=== PATIENT | male | born 1965 | race Caucasian/White ===

== ENCOUNTER 2025-08-13 09:30 | Inpatient (IN) | payer BC, SELFPAY ==
[2025-08-13] VITALS (26 sets, daily range): BP systolic 130–166; BP diastolic 87–107; BMI 26.2
--- NOTE | 2025-08-13 08:27 | HPS.HSE ---
Addendum entered and electronically signed by Stanford Granger MD 08/13/25 10:25:
Patient seen and examined in collaboration with MINUTE CLERK; agree with below.
- 59-year-old male with hypertension who presented for an elective stress test for evaluation of chest pain; patient has been having progressive anginal symptoms, now unstable over the past couple of weeks. Experienced midsternal chest pain and
nausea last evening.
- During the stress test the patient had exercise induced chest pain and significant EKG abnormalities (2.[address] depression in the inferolateral leads and 1-[address] elevation in lead aVR).
- The patient had persistence of chest pain post-exercise, although ST-T segments improved a few minutes into recovery.
- Patient referred to ER to be admitted to the Cardiology service and undergo cardiac catheterization today.
- Full dose aspirin, heparin drip, start beta-refugio.
- front desk monitor.
- N.p.o. for procedure.
Original Note:
Family Physician
-
Family Physician:
Estrellita Camara MD
Chief Complaint
-
chest discomfort
History of Present Illness
59 y/o with hypertension, preDM, remote paroxysmal AFIB in his 20's in setting of dehydration per patient- no known recurrence, and dyslipidemia who started noting chest tightness with exertion over the past 1-2 months. Sometimes noted at rest as
well. Last night it happened at rest and was associated with nausea. He presented today for a stress test. He developed CP and EKG changes, as well as brief NSVT. He was sent to the ER and plan is for cath for further evaluation.
Medical History
Past Medical History
Past Medical History: Reports Arrhythmia, HTN, Hypercholesterolemia and Other (pre DM)
Past Surgical History: Reports Other (hernia and hydrocelectomy)
Social History
Tobacco: Non-smoker
Alcohol: None
Drug: None
Personal:
Living: With Family
Family History
Family History: Other (GM at age 64. Had flu, may have had cardiac issues- unclear)
Allergies / Home Medications
Allergies reflects when Allergies were last updated in [facility].
Home Medications with original date entered in [facility]
Allergy/Medication List:
Allergies:
NKDA
Medications:
lisinopril 20 mg PO daily
Review of Systems
-
History Source: Patient
A 12 point ROS was completed and negative except as noted: Yes
Cardiac: Reports Chest Pain
Abdomen/GI: Reports Nausea
Physical Exam
Vital Signs
Vital Signs
Temp Pulse Resp BP Pulse Ox
98.5 F 94 18 166/107 98
08/13/25 08:08 08/13/25 08:08 08/13/25 08:08 08/13/25 08:08 08/13/25 08:08
Physical Exam
General: Well Developed, Well Nourished and No Apparent Distress
HEENT: NormoCephalic and Anicteric
Respiratory: Clear and Non Labored Respirations
Cardiac: Regular Rhythm
Skin: Warm and Dry
Neuro: AO x 3
Psych: Calm
Laboratory Results
-
Labs ordered and pending- OP LDL and HGBA1C as noted
Data Reviewed
-
Diagnostic Radiology: Image Personally Visualized and interpreted (EKG: NSR 96 BPM)
Medical Tests (Nuc Med, Echo, EKG etc): Other (echo ordered )
Lab Data: Other (labs ordered and pending)
Impression/Plan
-
IMPRESSION/PLAN:
Unstable angina:
-currently CP free
-this diagnosis is threat to life
-trend trops and EKG's
-ASA, statin, BB
-start heparin drip, which requires intensive monitoring
-cardiac cath today- cath team made aware by Dr. Granger. Will keep NPO.
Hypertension:
-elevated in ER and on stress test
-resume lisinopril
-add BB and monitor
PreDM:
-recent OP hgbA1C- 6.2 (07/29/25)
-should be educated on diet and exercise prior to d/c, and follow-up with PCP on this
HLD:
-LDL 105 (07/29/25)
-start statin for [place] as above
Remote PAF in his 20's:
-in setting of dehydration, no known recurrence. Follow telemetry.
--- NOTE | 2025-08-13 08:42 | ED.GENMED ---
History of Present Illness
General
Chief Complaint: Chest Pain
Time Seen by Provider: 08/13/25 08:42
History of Present Illness
History of Present Illness:
FOCUSED PAST MEDICAL HISTORY
- High blood pressure, was recently told he has high cholesterol
REVIEW OF OLD RECORDS
- I reviewed the: Note from Dr. Granger indicating that the patient 'had abnormal stress test, [address] depression inferolateral leads and [address] elevation in aVR, still with mild residual chest pain, but ST segments are normalizing, admit to
cardiology, cardiac cath today'
Note:
CHIEF COMPLAINT(S)
Chest tightness with exertion.
HISTORY OF PRESENT ILLNESS
The patient is a 59-year-old male who presented with symptoms of chest tightness occurring during exertion, specifically when walking for approximately 10 minutes or more. This symptom began about a month ago and was reported to his general
practitioner arrange for cardiac evaluation which led to stress testing this morning. The patient reports experiencing the chest tightness primarily during a treadmill stress test, which was subsequently found to be abnormal. He has a known history
of hypertension and was undergoing evaluation with plans for a heart catheterization.
PAST MEDICAL AND SURIGICAL HISTORY
- History of hypertension.
CHRONIC MEDICAL CONDITIONS SIGNIFICANTLY AFFECTING CARE
- Hypertension.
REVIEW OF SYSTEMS
- Cardiovascular: Reports chest tightness with exertion, particularly when walking for 10 minutes or during a stress test.
PHYSICAL EXAM
- General: Alert, no acute distress. Appears comfortable
- Skin: Warm, dry.
- Head: Normocephalic, atraumatic.
- Neck: Supple, trachea midline.
- Eye Ears, nose, mouth and throat: Oral mucosa moist.
- Cardiovascular: Normal peripheral perfusion, No edema.
- Respiratory: Respirations are non-labored.
- Gastrointestinal: Abdomen nondistended.
- Back: Normal range of motion, Normal alignment.
- Musculoskeletal: Normal ROM, normal strength.
- Neurological: Alert and oriented to person, place, time, and situation, No focal neurological deficit observed.
- Psychiatric: Cooperative, appropriate mood & affect.
PROBLEM LIST
- Acute: Chest tightness with exertion.
- Chronic: Hypertension.
PLAN
- Coordination with the cardiology team for further evaluation.
- Heart catheterization as planned.
- Blood work to be conducted.
DIFFERENTIAL DIAGNOSIS
The Differential Diagnosis includes, in no particular order and is not limited to:
- Angina Pectoris
- Myocardial Infarction
- Aortic Stenosis
- Pulmonary Embolism
- Gastroesophageal Reflux Disease
- Costochondritis
- Acute Coronary Syndrome
- Pericarditis
- Heart Failure
- Hypertrophic Cardiomyopathy
EKG
- Sinus 96, nonspecific ST abnormality with no old to compare
LABS
- CBC and chemistries unremarkable, troponin 0.014
UPDATE
-SUMMARY OF ENCOUNTER
A 59-year-old male presented to the emergency department (ED) due to chest tightness with exertion. This symptom was noted during routine activities and a treadmill stress test, which was abnormal. The patients history includes hypertension. He was
evaluated in the ED by Giselle Rushing, and the plan is for a heart catheterization to be conducted later today due to the abnormal cardiac stress testing.
MANAGEMENT OF THE PATIENTS CARE WAS DISCUSSED WITH
Discussion with Dr. Giselle Rushing regarding the patients evaluation and the plan for heart catheterization.
MEDICAL DECISION MAKING
- Number and Complexity of Problems Addressed:
Chronic conditions affecting care: Hypertension
Differential Diagnosis:
1. Angina Pectoris
2. Myocardial Infarction
3. Aortic Stenosis
4. Pulmonary Embolism
5. Gastroesophageal Reflux Disease
6. Costochondritis
7. Acute Coronary Syndrome
8. Pericarditis
9. Heart Failure
10. Hypertrophic Cardiomyopathy
DIAGNOSIS
- Abnormal cardiac stress testing (ICD-10: R94.31)
- Hypertension (ICD-10: I10)
Phy Exam
Physical Exam
Physical Exam:
See HPI
Scores
Heart Score for Chest Pain Patients
STEMI patient?: Not applicable
Course
Orders/Labs/Results
Orders:
Orders
08/13/25 08:12
ECG [Electrocardiogram (*1)] Urgent
Reason for Study: Chest Pain
EKG- Treatment ONCE
08/13/25 08:59
Aspirin 325 mg PO NOW STA
08/13/25 09:01
Type+Screen Urgent
Complete Blood Count/With Diff Urgent
Comprehensive Metabolic Panel Urgent
Magnesium Urgent
Troponin I Urgent
08/13/25 09:03
Weight As Directed
Frequency: Once
Comment: Please put in weight, so that I can order heparin drip- TY!
08/13/25 09:04
Admit/Transfer Patient As Directed
Co-Sign Provider:
Level of Care: Inpatient admission
Assign to:: IVU
Physician / Group: Dr. Granger
Diagnosis: unstable angina
Reason for Hospitalization: unstable angina
Expected length of stay greater than two midnights?: Yes
ELOS- Estimated Length of Stay in days: 3
I certify the patient meets the requirements for IP care: Yes
08/13/25 09:05
Code Status As Directed
Resuscitation Status: Full Code
08/13/25 09:16
Heparin 4,000 units IV NOW STA
Heparin Protocol- PTT Orders As Directed
PTT per Heparin protocol: -Obtain CBC and baseline PTT - if not already collected.
-Obtain PTT 6 hours from start of infusion. Then, every 6 hours until 2 consecutive
PTT's are therapeutic. Then, PTT Daily.
-With each rate change, obtain PTT every 6 hours until 2 consecutive PTT's are
therapeutic. Then, PTT Daily.
Notify MD As Directed
Notify physician if: PTT is greater than or equal to 200.
08/13/25 09:23
PTT Urgent
Comment: Obtain baseline before beginning heparin infusion if not already collected
08/13/25 09:30
Heparin 79120 Units/250 ml 25,000 units in 250 ml IV PER PROTOCOL
Weight to be used for heparin protocol in kilograms (kg):: 87.7
Protocol:: Cardiac Tx/Acute Coronary
PTT Goal Range to be used:: PTT 73 to 111 seconds
Order type:: Initial
INITIAL Infusion Dose (UNITS/KG/hr) & then follow protocol:: 12 units/kg/hr
Infusion Dose in UNITS/hr & then follow protocol (UNITS/hr):: 1,000
INFUSION RATE in mL/hr & then follow protocol (mL/hr):: 10
PTT less than or equal to 64 seconds:: Increase rate by 200 units/hr (+ 2 mL/hr)
PTT 64.1 to 72.9 seconds:: Increase rate by 100 units/hr (+ 1 mL/hr)
PTT 73 to 111 seconds:: Target Range. No change in rate.
PTT 111.1 to 130.9 seconds:: Decrease rate by 100 units/hr (- 1 mL/hr)
PTT 131 to 199.9 seconds:: HOLD for 1 hr. Then decrease rate by 200 units/hr (- 2 mL/hr)
PTT greater than or equal to 200 seconds:: HOLD for 2 hrs & Notify Provider. Then decrease by 200 units/hr (-
2 mL/hr)
Lab follow-up:: Each change, PTT q6h until 2 consecutive are therapeutic. Then PTT
daily.
08/13/25 10:00
Lisinopril [Zestril] 20 mg PO DAILY
Metoprolol Xl [Toprol Xl] 25 mg PO DAILY
08/15/25 06:00
Complete Blood Count/No Diff Q2D
Comment: Notify if platelet count is <130,000 or decreases by 50% from baseline
08/17/25 06:00
Complete Blood Count/No Diff Q2D
Comment: Notify MD if platelet count is <130,000 or decreases by 50% from baseline
08/19/25 06:00
Complete Blood Count/No Diff Q2D
Comment: Notify MD if platelet count is <130,000 or decreases by 50% from baseline
08/21/25 06:00
Complete Blood Count/No Diff Q2D
Comment: Notify MD if platelet count is <130,000 or decreases by 50% from baseline
08/23/25 06:00
Complete Blood Count/No Diff Q2D
Comment: Notify MD if platelet count is <130,000 or decreases by 50% from baseline
08/25/25 06:00
Complete Blood Count/No Diff Q2D
Comment: Notify MD if platelet count is <130,000 or decreases by 50% from baseline
08/27/25 06:00
Complete Blood Count/No Diff Q2D
Comment: Notify MD if platelet count is <130,000 or decreases by 50% from baseline
08/29/25 06:00
Complete Blood Count/No Diff Q2D
Comment: Notify MD if platelet count is <130,000 or decreases by 50% from baseline
Abnormal Lab Results
08/13/25
09:01
MCV 94.5 H fL
(80.0-94.0)
MCHC 32.3 L g/dL
(33.0-37.0)
Glucose 113 H mg/dl
(70-99)
Total Bilirubin 2.3 H mg/dl
(0.2-1.3)
08/13/25 09:01
08/13/25 09:01
Vital Signs
Initial and Last Documented VS:
Initial Vital Signs
Temp Pulse Resp BP Pulse Ox
36.9 C 94 18 166/107 98
08/13/25 08:08 08/13/25 08:08 08/13/25 08:08 08/13/25 08:08 08/13/25 08:08
Last Documented Vital Signs
Temp Pulse Resp BP Pulse Ox
36.9 C 63 21 155/103 96
08/13/25 08:08 08/13/25 10:06 08/13/25 09:02 08/13/25 10:06 08/13/25 09:02
*Pulse Oximetry
SaO2: 98
Oxygen Mode of Delivery: Room air
Patient hypoxic: no
*Critical Care Note
Total Time (30-74mins, 75-104mins- exclusive of procedures): Not Applicable
ED Attending Note
-
Portions of this chart may have been created with voice recognition software.� Occasional wrong word or��sound alike� substitutions may have occurred due to the inherent limitations of voice recognition software.
Discharge Plan
Departure
Patient Disposition: Admit
Date of Disposition: 08/13/25
Time of Disposition: 08:47
Presentation/result/management discussed w/ accepting MD/DO: [email or web address]
Discharge Problem:
Abnormal cardiovascular stress test
Interventions
Interventions:
*Risk Screen - Suicide Last Done: 08/13/25 08:08
*General Assessment Last Done: 08/13/25 08:12
*Neglect/Abuse Screening Last Done: 08/13/25 09:16
*ED- Fall Risk Assessment Last Done: 08/13/25 09:16
*ED COVID-19 Vaccine History Last Done: 08/13/25 09:16
*ED Influenza Vaccine History Last Done: 08/13/25 09:16
ED- Cardiac Assessment Last Done: 08/13/25 09:19
[2025-08-13] MEDS: ASPIRIN 325 MG PO (09:10)
[2025-08-13 09:15] LABS: Hematocrit 46.4 % (39.0-52.0); Hemoglobin 15.0 g/dL (13.0-18.0); Mean Corp Hgb Conc. 32.3 g/dL (33.0-37.0); Mean Corpuscular Volume 94.5 fL (80.0-94.0); Nucleated Red Blood Cells % 0 % (-); Platelet Count 305 10^3/uL (130-400); Red Cell Dist. Width 13.1 % (11.5-14.5)
[2025-08-13 09:27] LABS: ALT (SGPT) 33 U/L (0-50); AST (SGOT) 25 U/L (17-59); Albumin 4.6 g/dl (3.5-5.0); Alkaline Phosphatase 65 U/L (38-126); Blood Urea Nitrogen 14 mg/dl (9-20); Calcium 9.4 mg/dl (8.4-10.2); Carbon Dioxide 25 mmol/L (22-30); Chloride 105 mmol/L (98-107); Estimated Creatinine Clearance 96 ml/min; Glucose 113 mg/dl (70-99); Magnesium 2.0 mg/dl (1.6-2.3); Potassium 4.3 mmol/L (3.5-5.1); Sodium 137 mmol/L (135-145); Total Protein 7.9 g/dl (6.3-8.2); eGFR > 60.00
[2025-08-13 09:38] LABS: Troponin I 0.014 ng/ml
[2025-08-13 09:57] LABS: APTT 23.8 Sec (23.4-35.0)
[2025-08-13] MEDS: HEPARIN 4000 UNITS IV (10:01)
[2025-08-13] MEDS: HEPARIN 25000 UNITS/250 ML IV (10:02)
[2025-08-13] MEDS: ZESTRIL 20 MG PO (10:05)
[2025-08-13] MEDS: TOPROL XL 25 MG PO (10:06)
[2025-08-13 15:39] LABS: Troponin I 0.016 ng/ml
--- NOTE | 2025-08-13 16:29 | ITS.CL.CATH ---
[facility] - Catheterization
Cardiac Catheterization
Procedure Report:
CARDIAC CATHETERIZATION REPORT
Date of Procedure: 08/13/2025
Referring: Stanford Granger M.D.
INDICATION: Abnormal stress test.
PROCEDURE:
1. Left heart catheterization
2. Coronary angiography.
A total of 26 minutes of procedural/moderate sedation was utilized. An independent durable medical equipment technician was present to assist with and help manage the patient's level of consciousness and physiologic status.
ACCESS:
1. 6 Swedish right radial artery using a modified Seldinger technique.
CATHETERS:
1. 5 Swedish JR4.
2. 5 Swedish JL 3.5.
HEMODYNAMIC DATA
Weight (kg): 87.5
AO (s/d/x, mmHg): 149/97/114
LV (s/x mmHg): 149/11
AV gradient (x, mmHg): None.
LEFT VENTRICULOGRAPHY: Normal.
CORONARY ANGIOGRAPHY
Dominance: Right.
Left Main: Normal size, bifurcating vessel. There is no coronary artery disease.
LAD: Normal size vessel giving rise to 1 large diagonal. There are minor luminal irregularities.
Ramus: Congenitally absent.
Circumflex: Normal size, nondominant vessel that is essentially a single obtuse marginal supplying the inferolateral wall. There is no coronary artery disease.
RCA: Large size, dominant vessel with a large posterolateral branch. There is no coronary artery disease.
INTERVENTION(S)
None.
Closure Device: Vascular band.
Radiation (mGy): 321
DAP (cm2.Gy): 14.7
Fluoroscopy time (minutes): 1.9
CONCLUSIONS
1. Right dominant circulation with luminal irregularities in the LAD.
2. Normal filling pressures (LVEDP = 11 mmHg at 87.5 kg).
3. Moderate arterial hypertension.
4. Hypertensive response to exercise with abnormal stress test results, false positive for ischemia.
RECOMMENDATIONS:
1. Expectant management after cardiac catheterization via right radial approach.
2. Limited weight bearing on the right wrist for one week.
3. Increase lisinopril to 40 mg daily. BMP in 1 week.
4. Stable for outpatient follow-up.
Copy to: Stanford Granger M.D., Estrellita Camara M.D.
Preston Vargas DO, FACC, FACP
--- NOTE | 2025-08-13 16:43 | W.DS.TRANS ---
DC Summary - Traffic Enumerator
-
Discharge Instructions:
Discharge Diagnosis/Procedures Hypertension
Cardiac catheterization
Diet Low Sodium
Driving Restrictions No driving for 24 hours
Blood Work BMP in 1 week- results to Dr. Granger
Instructions:
Stand-Alone Forms: DC Instructions- Cath/EP Lab
Changes to Home Medications: Yes
Discharge Medications:
DC Medications w/original date entered in [facility]
lisinopril 40 mg tablet 40 mg PO HS #30 tabs 08/13/25
Home Medication Changes
DOSE INCREASE: lisinopril
Pending Results: No
[2025-08-13] MEDS: ZESTRIL 40 MG PO (17:15)
== END 2025-08-13 19:33 | disposition home or self-care (01) | DRG 287 ==
LOC: CATH-IN 09:30
PROVIDERS: Internal Medicine Cardiovascular Disease; Nurse Practitioner; ADMITTING PHYSICIAN Internal Medicine; EMERGENCY PHYSICIAN Emergency Medicine; FAMILY PHYSICIAN Family Medicine
PROC: 4A023N7 Measurement of Cardiac Sampling and Pressure, Left Heart, Percutaneous Approach (ICD-10-PCS; 2025-08-13)
PROC: B2111ZZ Fluoroscopy of Multiple Coronary Arteries using Low Osmolar Contrast (ICD-10-PCS; 2025-08-13)
DX: I20.0 Unstable angina (principal); I47.20 Ventricular tachycardia, unspecified; I10 Essential (primary) hypertension; I48.0 Paroxysmal atrial fibrillation; E86.0 Dehydration
CPT/HCPCS: 80053; 83735; 84484; 85025; 85730; 86850; 86900; 86901; 93005; 93017; 93306; 93458; 96374; 96376; 99152; 99153; 99285; C1769; C1894; Q9967